=== PATIENT | male | born 1930 | race Caucasian/White ===

== ENCOUNTER 2020-08-17 10:54 | Emergency (ER) | payer OTHER ==
[~2020-08-17] VITALS: Ht 167.6 cm; Wt 68.0 kg
[~2020-08-17 10:54] MED LIST: IBUPROFEN800 MG PO; ISOSORBIDE DINI30 MG PO; LIPITOR20 MG; LOTREL 2.5/10 M1 CAP PO; LOTREL 5-20 MG1 CAP PO; NEURONTIN300 MG PO; OMEPRAZOLE20 MG; PLETAL100 MG; SEPTRA DS TABLE1 TAB PO; TESSALON PERLE100 M1 PO; TUSSIN MUC100 MG/5 M PO; XOPENEX HFA15 GM IH; XOPENEX0.63 MG/3 IH; [UNRECOGNIZED DRUG - OTHER]; [UNRECOGNIZED DRUG - OTHER]
== END 2020-08-17 18:29 | disposition home or self-care (01) ==
LOC: ER 10:54
DX: R10.84 Generalized abdominal pain (principal); R11.2 Nausea with vomiting, unspecified; R14.0 Abdominal distension (gaseous); R00.1 Bradycardia, unspecified; T88.1XXA Other complications following immunization, not elsewhere classified, initial encounter

== ENCOUNTER 2020-12-15 17:29 | Emergency (ER) | payer OTHER ==
[~2020-12-15] VITALS: Ht 167.6 cm; Wt 68.0 kg
[2020-12-15] MEDS ORDERED: ZOCOR20 MG (17:38)
[2020-12-15] MEDS ORDERED: DIOVAN40 MG (17:38)
[2020-12-15] MEDS ORDERED: CALAN SR120 MG (17:38)
== END 2020-12-15 21:18 | disposition home or self-care (01) ==
LOC: ER 17:29
DX: R06.02 Shortness of breath (principal); R42 Dizziness and giddiness; R53.1 Weakness